=== PATIENT | female | born 1955 | race Caucasian/White ===

== ENCOUNTER 2016-07-24 11:27 | Emergency (ER) | payer BC ==
--- NOTE | 2016-07-24 12:51 | RAD ---
Indication: Visual disturbance RIGHT eye. Comparison: None. Technique: Noncontrast CT vertex of skull through foramen magnum. Report: Ill-defined approximate 0.7 cm hypodensity at the level of the periventricular white matter of the RIGHT frontal lobe at the level of the centrum semiovale bowel. Negative for mass effect. Negative for richey matter white matter obscuration. Negative for intra or extra-axial hemorrhage. The cerebral sulci, ventricles, and basal cisterns are within normal limits. Unremarkable orbital contents. Unremarkable calvarium and skull base. Clear visualized paranasal sinuses and mastoid air spaces. Negative for scalp hematoma. IMPRESSION: Noted ill-defined subcentimeter hypodensity at the RIGHT frontal lobe white matter without mass effect is nonspecific. This may represent chronic small vessel ischemic disease or potentially a demyelinating lesion.
--- NOTE | 2016-07-24 14:19 | ED ---
Blake Donohue Karl, scribed for Brandon Hayward MD on 07/24/16 at 1233 . Throat Pain/Nasal Congestion - HPI Summary HPI Summary: 45 y/o F presents with c/o vision problems in her right eye that began this morning when she woke up. Pt stated that at first she thought she only had floaters but by 09:30 it was worse. Pt stated that it felt like "liquid spilled inside my eye," further obstructing her vision to the point where it felt like she was trying to "see through the liquid." Pt stated that her vision has since returned to normal. Pt denied any pain. Hx: pernicious anemia. - History of Current Complaint Chief Complaint: EDEyeProblem Time Seen by Provider: 07/24/16 12:13 Hx Obtained From: Patient Onset/Duration: Gradual Onset, Lasting Hours, Worse Since - 930 Severity: Mild - Allergies/Home Medications Allergies/Adverse Reactions: Allergies Allergy/AdvReac Type Severity Reaction Status Date / Time Penicillins Allergy Intermediate Hives Verified 07/24/16 11:41 PMH/Surg Hx/FS Hx/Imm Hx Previously Healthy: Yes Musculoskeletal History: Denies: Hx Osteoporosis - Cancer History Hx Chemotherapy: No Hx Radiation Therapy: No - Surgical History Surgery Procedure, Year, and Place: Infectious Disease History: No Infectious Disease History: Denies: Hx Clostridium Difficile, Hx Hepatitis, Hx Human Immunodeficiency Virus (HIV), Hx of Known/Suspected MRSA, Hx Shingles, Hx Tuberculosis, Hx Known/ Suspected VRE, Hx Known/Suspected VRSA, History Other Infectious Disease, Traveled Outside the [place] in Last 30 Days - Family History Known Family History: Positive: Cardiac Disease - Social History Alcohol Use: Rare Substance Use Type: Reports: None Smoking Status (MU): Never Smoked Tobacco Review of Systems Constitutional: Negative Positive: Blurred Vision ENT: Negative Cardiovascular: Negative Respiratory: Negative Gastrointestinal: Negative Genitourinary: Negative Musculoskeletal: Negative Skin: Negative Neurological: Negative Psychological: Normal All Other Systems Reviewed And Are Negative: Yes Physical Exam - Summary Physical Exam Summary: VITAL SIGNS: Reviewed. GENERAL: Patient is a well developed and nourished female who is lying comfortable in the stretcher. Patient is not in any acute respiratory distress. HEAD AND FACE: No signs of trauma. No ecchymosis, hematomas or skull depressions. No sinus tenderness. EYES: PERRLA, EOMI x 2, No injected conjunctiva, no nystagmus. No photophobia. Visual acuity: Right Eye with glasses: 20/50 Left Eye with glasses: 20/20 Both with glasses: 20/20 EARS: Hearing grossly intact. Ear canals and tympanic membranes are within normal limits. MOUTH: Oropharynx within normal limits. NECK: Supple, trachea is midline, no adenopathy, no JVD, no carotid bruit, no c- spine tenderness, neck with full ROM. No meningeal signs, no Kernig's or brudzinskis signs. CHEST: Symmetric, no tenderness at palpation LUNGS: Clear to auscultation bilaterally. No wheezing or crackles. CVS: Regular rate and rhythm, S1 and S2 present, no murmurs or gallops appreciated. ABDOMEN: Soft, non-tender. No signs of distention. No rebound no guarding, and no masses palpated. Bowel sounds are normal. EXTREMITIES: FROM in all major joints, no edema, no cyanosis or clubbing. NEURO: Alert and oriented x 3. No acute neurological deficits. Speech is normal and follows commands. SKIN: Dry and warm Vital Signs On Initial Exam: Initial Vitals Temp Pulse Resp BP Pulse Ox 98.0 F 73 14 139/69 100 07/24/16 11:30 07/24/16 11:30 07/24/16 11:30 07/24/16 11:30 07/24/16 11:30 Diagnostics - Vital Signs Vital Signs Temp Pulse Resp BP Pulse Ox 07/24/16 11:30 98.0 F 73 14 139/69 100 - Laboratory Lab Statement: Any lab studies that have been ordered have been reviewed, and results considered in the medical decision making process. - CT CT Brain CT Interpretation: Positive (See Comments) CT Interpretation Completed By: Radiologist - IMPRESSION: Noted ill-defined subcentimeter hypodensity at the RIGHT frontal lobe white matter without mass effect is nonspecific. This may represent chronic small vessel ischemic disease or potentially a demyelinating lesion. - EKG 11:44 EKG Interpretation: NSR at 69 bpm, No ST elevations EENT Course/Dx - Course Assessment/Plan: 45 y/o F presents with c/o vision problems in her right eye that began this morning when she woke up. Pt stated that at first she thought she only had floaters but by 09:30 it was worse. Pt stated that it felt like "liquid spilled inside my eye," further obstructing her vision to the point where it felt like she was trying to "see through the liquid." Pt stated that her vision has since returned to normal. Pt denied any pain. Hx: pernicious anemia. Head CT impression: Noted ill-defined subcentimeter hypodensity at the RIGHT frontal lobe white matter without mass effect is nonspecific. This may represent chronic small vessel ischemic disease or potentially a demyelinating lesion. It seems that the patient is dealing with floaters. She continues to have no pain and she is at her baseline in her visual acuity. Since she is stable she will be discharged home with f/u with her Community Education Specialist Dr. Lao. I discussed all the findings and test results with the patient. Patient was instructed to return to the emergency room immediately if any of the symptoms return or worsens. Plan of care was discussed with the patient and understands and agrees. All questions were answered at patient satisfaction. There were no further complaints or concerns. P/E: Lungs: CTA B/L. Good air exchange. No wheezing or crackles heard. CVS: S1 and S2 present. No murmurs appreciated. Patient is alert and oriented x 3. Patient is hemodynamically stable. Patient will be discharged home with follow up Dr. Lao. - Differential Diagnoses Differential Diagnoses: Other - Retinal detachment, foreing body - Diagnoses Provider Diagnoses: Floaters in visual field Discharge - Discharge Plan Condition: Stable Disposition: HOME Patient Education Materials: Visual Floaters (ED) Additional Instructions: Please follow up with your primary care provider. Return to the emergency department for changing or worsening symptoms. The documentation as recorded by the Blake sterling Karl accurately reflects the service I personally performed and the decisions made by me, Brandon Hayward MD.
[2016-07-24 14:27] VITALS: BP 106/53
== END 2016-07-24 14:27 | disposition home or self-care (01) ==
LOC: ED 11:27
DX: H43.399 Other vitreous opacities, unspecified eye (principal)
CPT/HCPCS: 70450; 93005; 99282